=== PATIENT | female | born 1990 | race Caucasian/White ===

== ENCOUNTER 2017-03-18 09:29 | Emergency (ER) | payer OTHER | END 2017-03-18 10:17 | disposition home or self-care (01) | LOC: ER 09:29 | DX: M54.5 Low back pain (principal); M79.605 Pain in left leg; F17.210 Nicotine dependence, cigarettes, uncomplicated; Z90.711 Acquired absence of uterus with remaining cervical stump; Z88.0 Allergy status to penicillin; Z88.5 Allergy status to narcotic agent; X50.1XXA Overexertion from prolonged static or awkward postures, initial encounter | CPT/HCPCS: 96372; J1885 ==

== ENCOUNTER 2017-04-01 11:27 | Emergency (ER) | payer OTHER | END 2017-04-01 12:33 | disposition home or self-care (01) | LOC: ER 11:27 | DX: S13.4XXA Sprain of ligaments of cervical spine, initial encounter (principal); J45.909 Unspecified asthma, uncomplicated; F17.290 Nicotine dependence, other tobacco product, uncomplicated; Z90.711 Acquired absence of uterus with remaining cervical stump; Z90.89 Acquired absence of other organs; Z88.5 Allergy status to narcotic agent; Z88.0 Allergy status to penicillin; Y93.B9 Activity, other involving muscle strengthening exercises ==

== ENCOUNTER 2017-08-08 11:10 | Emergency (ER) | payer OTHER | END 2017-08-08 13:40 | disposition home or self-care (01) | LOC: ER 11:10 | DX: J98.01 Acute bronchospasm (principal); F17.290 Nicotine dependence, other tobacco product, uncomplicated; Z88.0 Allergy status to penicillin; Z88.5 Allergy status to narcotic agent | CPT/HCPCS: 94640; 96372; J1100 ==